=== PATIENT | female | born 1955 | race Caucasian/White ===

== ENCOUNTER 2019-04-01 05:51 | Day surgery (SDC) | payer OTHER ==
[2019-04-01] MEDS ORDERED: FENTAnyl 50 MCG/ML VIAL (09:01)
[2019-04-01] MEDS ORDERED: MIDAZOLAM 1 MG/ML 2 ML INJ (09:01)
== END 2019-04-01 15:22 | disposition home or self-care (01) ==
LOC: GIL 05:51
DX: K21.9 Gastro-esophageal reflux disease without esophagitis (principal); K29.50 Unspecified chronic gastritis without bleeding
CPT/HCPCS: 43239; 88305; 88312